=== PATIENT | female | born 1990 | race Caucasian/White ===

== ENCOUNTER 2019-03-10 20:08 | Outpatient (CLI) | payer OTHER ==
[~2019-03-10] VITALS: Ht 167.6 cm; Wt 92.6 kg
[2019-03-10 21:04] VITALS: Ht 167.6 cm; Wt 92.6 kg
[2019-03-10] MEDS ORDERED: PREN1TAB91 PO (21:06)
[2019-03-10] MEDS ORDERED: ASPI-817 PO (21:06)
--- NOTE | 2019-03-10 23:08 | PN ---
Triage Information Date/Time March 10, 2019 Reason for visit: Abd/pelvic pain Weeks of Gestation 26w 2d /Para 3/2 Diabetes: none Hypertention: none Additional information Pt reports lower abdominal pain x 2 days, 5/10. The pain is constant. No problems with constipation. No dysuria. No bleeding or leaking. The pt is taking care of an active 2 year old at home without help as her spouse works 7 days a week and they also both go to school. POBHx: x 2, the 1st in 2017, the 2nd a stillborn at 9 months. PMHx: none. PSHx: appendectomy. All: PCN. Objective BP 111/68 T=98.4 Heart Rate: 140's Heart Rate Comments No decels. Contractions: None Results/Medications Results 24 hrs Laboratory Tests Test 03/10/19 20:10 Urine Color YELLOW Urine Clarity CLOUDY A Urine pH 6.0 Urine Specific [place] 1.026 Urine Ketones 1+ H Urine Nitrite NEGATIVE Urine Bilirubin NEGATIVE Urine Urobilinogen NEGATIVE Urine Leukocyte Esterase NEGATIVE Urine Microscopic RBC 6 H Urine Microscopic WBC 2 Urine Squamous Epithelial Cells MANY A Urine Mucus FEW A Urine Hemoglobin NEGATIVE Urine Glucose NEGATIVE Urine Total Protein NEGATIVE Disposition: Discharge Assessment/Plan A: IUP at 26w 2d. Lower abdominal pain. False labor. P: The pt was given 2 big glasses of water to drink and reported feeling much better afterwards. Her urine was clear and w/o evidence of infection but was concentrated. No contractions noted and the pt appeared very comfortable at all times. The pt felt very comfortable with going home and was told to rest more as she has had a lot on her plate (the last day of school was today) and she should rest when her child rests. Keep appt 03/27 as scheduled at her clinic. HERMINIA ORR MD Mar 10, 2019 23:07
--- NOTE | 2019-03-11 01:51 | TRIAGE ---
OB Triage Datetime Report Generated by CPN: 03/11/2019 01:50 Datetime: 03/10/2019 22:50 Stage of : OB Triage Labor Evaluation Frequency: 0 Monitor Mode: External Pattern: Normal: <= 5 Contractions in 10 Minutes Resting Tone [place]: Relaxed Datetime: 03/10/2019 21:45 Stage of : OB Triage Temperature Route: Oral Labor Evaluation Frequency: X1 IN 1 HR Monitor Mode: External Duration (sec)2399: 50 Quality: Mild Pattern: Normal: <= 5 Contractions in 10 Minutes Resting Tone [place]: Relaxed Heart Rate FHR Baseline Rate: 140 Monitor Mode: External US Variability: Moderate 6-25 bpm Accelerations: 15X15 Decelerations: None Category: Category I Pain Assessment Pain Scale: 5 Pain Presence: Constant Pain Type: Ache Pain Location: Abdomen Pain Goal: 5 Pain Relief Measures: Comfort Measures Datetime: 03/10/2019 21:00 Time of Arrival: 03/10/2019 19:55 EGA: 26.2 Arrived By: Wheelchair Arrived From: Home Chief Complaint: LOWER ABD PAIN Movement: Present Contractions: Denies/Absent Rupture of Membranes: Denies Vaginal Discharge: Denies Recent Sexual Intercouse: Denies Time Provider Notified: 03/10/2019 20:55 Provider Notified: REICHE Initial Plan: EFM, UA, PO HYDRATION Datetime: 03/10/2019 20:45 Assessment Type: Triage Maternal Assessment Level of Consciousness: Fully Conscious DTR's/Clonus: DTRs 2+; No Clonus Headache: Denies Blurred Vision: No Respiratory Effort: Unlabored; Regular Rhythm; Equal Expansion Breath Sounds, Left: Clear and Equal Breath Sounds, Right: Clear and Equal Nausea/Vomiting: Denies RUQ Epigastric Pain: Denies Lower Extremities Edema: None Upper Extremities Edema: None Facial Edema: None Fall Risk Assessment History of Falling: (0) No Secondary Diagnosis: (0) No Ambulatory Aid: (0) Bedrest/Nurse Assist IV Therapy: (0) No Gait: (0) Normal/Bedrest/Immobile Mental Status: (0) Oriented to Own Ability Fall Score: 0 Fall Risk Score Definition: No Risk: No action required
== END 2019-03-10 23:05 | disposition home or self-care (01) ==
LOC: L-D 20:08 → OBT 20:08
PROVIDERS: ATTEND Obstetrics & Gynecology
DX: O47.02 False labor before 37 completed weeks of gestation, second trimester (principal); O26.892 Other specified pregnancy related conditions, second trimester; R10.30 Lower abdominal pain, unspecified; Z3A.26 26 weeks gestation of pregnancy
CPT/HCPCS: 81001; Z7500; G0463